=== PATIENT | male | born 1995 | race American Indian/Alaskan Native ===

== ENCOUNTER 2019-10-06 15:07 | Emergency (ER) | payer SELFPAY ==
[2019-10-06 15:24] VITALS: BP 134/91
--- NOTE | 2019-10-06 16:01 | Emergency Department Report ---
ED ENT HPI - General Chief complaint: Dental/Oral Stated complaint: TOOTH PAIN Time Seen by Provider: 10/06/19 15:56 Source: patient Mode of arrival: Ambulatory Limitations: No Limitations - History of Present Illness Initial comments: 24 YO AA MALE WITH SEVERE LEFT MANDIBULAR DENTAL PAIN PAIN RADIATING DOWN INTO HIS L SHOULDER AND TO HIS HEAD EVALUATED DUE TO CONCERN FOR ABSCESS MD complaint: tooth pain -: Gradual, days(s) Severity: severe Quality: stabbing Consistency: constant Improves with: none Worsens with: none Associated Symptoms: toothache. denies: fever, cough, gum swelling, pain with swallowing, sore throat, tinnitus, hearing loss, discharge from ear, rhinorrhea - Related Data Previous Rx's Medication Instructions Recorded Last Taken Type Amoxicillin [Trimox CAP] 500 mg PO BID #20 capsule 10/06/19 Unknown Rx Ibuprofen [Motrin] 800 mg PO Q8HR PRN #30 tablet 10/06/19 Unknown Rx Allergies Allergy/AdvReac Type Severity Reaction Status Date / Time No Known Allergies Allergy Unverified 10/06/19 15:18 ED Dental HPI - General Chief complaint: Dental/Oral Stated complaint: TOOTH PAIN Time Seen by Provider: 10/06/19 15:56 Source: patient Mode of arrival: Ambulatory Limitations: No Limitations - Related Data Previous Rx's Medication Instructions Recorded Last Taken Type Amoxicillin [Trimox CAP] 500 mg PO BID #20 capsule 10/06/19 Unknown Rx Ibuprofen [Motrin] 800 mg PO Q8HR PRN #30 tablet 10/06/19 Unknown Rx Allergies Allergy/AdvReac Type Severity Reaction Status Date / Time No Known Allergies Allergy Unverified 10/06/19 15:18 ED Review of Systems ROS: Stated complaint: TOOTH PAIN Other details as noted in HPI Comment: All other systems reviewed and negative ED Past Medical Hx - Past Medical History Previous Medical History?: No - Surgical History Past Surgical History?: Yes Additional Surgical History: hernia repair - Family History Family history: no significant - Social History Smoking Status: Current Every Day Smoker Substance Use Type: None - Medications Home Medications: Home Medications Medication Instructions Recorded Confirmed Last Taken Type Amoxicillin [Trimox CAP] 500 mg PO BID #20 capsule 10/06/19 Unknown Rx Ibuprofen [Motrin] 800 mg PO Q8HR PRN #30 tablet 10/06/19 Unknown Rx ED Physical Exam - General Limitations: No Limitations General appearance: alert, in no apparent distress - Head Head exam: Present: atraumatic, normocephalic - Eye Eye exam: Present: normal appearance - ENT ENT exam: Present: mucous membranes moist - Expanded ENT Exam Expanded Ear exam: Present: normal external inspection Mouth exam: Present: normal external inspection. Absent: drooling, trismus, muf fled voice, tongue normal, tongue elevation, laceration Teeth exam: Present: dental caries 1 - Other (CARIES) - Neck Neck exam: Present: normal inspection - Respiratory Respiratory exam: Present: normal lung sounds bilaterally. Absent: respiratory distress - Cardiovascular Cardiovascular Exam: Present: regular rate, normal rhythm. Absent: systolic murmur, diastolic murmur, rubs, gallop - GI/Abdominal GI/Abdominal exam: Present: soft, normal bowel sounds - Rectal Rectal exam: Present: deferred - Extremities Exam Extremities exam: Present: normal inspection - Back Exam Back exam: Present: normal inspection - Neurological Exam Neurological exam: Present: alert, oriented X3 - Psychiatric Psychiatric exam: Present: normal affect, normal mood - Skin Skin exam: Present: warm, dry, intact, normal color. Absent: rash ED Course Vital Signs 10/06/19 15:18 Temperature 98.7 F Pulse Rate 76 Respiratory 18 Rate Blood Pressure 134/91 O2 Sat by Pulse 97 Oximetry ED Medical Decision Making - Medical Decision Making NO ABSCESS NO LUDWIGS ABC INTACT DC WITH AMOX AND DMD FOLLOW UP TAKING PO VERBALIZES UNDERSTANDING DC POC Vital Signs 10/06/19 15:18 Temperature 98.7 F Pulse Rate 76 Respiratory 18 Rate Blood Pressure 134/91 O2 Sat by Pulse 97 Oximetry - Differential Diagnosis DENTAL PAIN RO ABSCESS Critical care attestation.: If time is entered above; I have spent that time in minutes in the direct care of this critically ill patient, excluding procedure time. ED Disposition Clinical Impression: Dental caries, Pain, dental Disposition: DC-01 TO HOME OR SELFCARE Is pt being admited?: No Does the pt Need Aspirin: No Condition: Stable Additional Instructions: SEE DMD TRACI SEE REFERRALS Referrals: [facility] [Outside] - 3-5 Days Time of Disposition: 15:58
== END 2019-10-06 16:09 | disposition home or self-care (01) ==
LOC: ED 15:07
DX: K02.9 Dental caries, unspecified (principal); K08.89 Other specified disorders of teeth and supporting structures; F17.200 Nicotine dependence, unspecified, uncomplicated; Z98.890 Other specified postprocedural states; Z79.899 Other long term (current) drug therapy
CPT/HCPCS: 99282

== ENCOUNTER 2021-05-26 00:53 | Emergency (ER) | payer SELFPAY ==
[2021-05-26] MEDS ORDERED: SODIUM CHLORIDE 0.9% 1000 ML 1,000 ML IV ONE (01:13)
[2021-05-26] MEDS ORDERED: NALOXONE 0.4 MG/1 ML INJ IV ONE (01:13)
--- NOTE | 2021-05-26 01:40 | XRay Report ---
CHEST 1 VIEW INDICATION / CLINICAL INFORMATION: Overdose. COMPARISON: None available. FINDINGS: SUPPORT DEVICES: None. HEART / MEDIASTINUM: No significant abnormality. LUNGS / PLEURA: No significant pulmonary or pleural abnormality. No pneumothorax. ADDITIONAL FINDINGS: No significant additional findings. IMPRESSION: 1. No active cardiopulmonary disease. Signer Name: Hans Álvarez II, MD Signed: 05/26/2021 1:36 AM Workstation Name: [email or web address]
[2021-05-26 02:01] LABS: Hematocrit 47.9 % (35.5-45.6); Hemoglobin 15.4 gm/dl (11.8-15.2); Mean Corpuscular HGB Conc 32 % (32-34); Mean Corpuscular Volume 90 fl (84-94); Red Blood Count 5.34 M/mm3 (3.65-5.03); Red Cell Distribution Width 13.4 % (13.2-15.2)
[2021-05-26 02:02] LABS: Basophils # (Auto) 0.1 K/mm3 (0.0-0.1); Basophils % (Auto) 0.5 % (0.0-1.8); Eosinophils % (Auto) 0.3 % (0.0-4.3); Lymphocytes # (Auto) 4.2 K/mm3 (1.2-5.4); Lymphocytes % (Auto) 31.9 % (13.4-35.0); Monocytes % (Auto) 7.9 % (0.0-7.3); Platelet Count 256 K/mm3 (140-440)
[2021-05-26 02:08] LABS: Cannabinoid Screen,Urine PRESUMPTIVE POSITIVE
[2021-05-26 02:12] LABS: Bacteria,Urine 2+ /HPF (Negative); Bilirubin,Urine NEG (Negative); Blood,Urine NEG (Negative); Color,Urine Straw (Yellow); RBC,Urine < 1.0 /HPF (0.0-6.0); Urobilinogen,Urine < 2.0 mg/dL (<2.0)
[2021-05-26 02:12] LABS: Alanine Aminotransferase 19 units/L (7-56); Albumin 4.8 g/dL (3.9-5); BUN/Creatinine Ratio 9; Blood Urea Nitrogen 7 mg/dL (9-20); Calcium 8.8 mg/dL (8.4-10.2); Hemolysis Index 5
[2021-05-26 02:15] LABS: WBC,Urine < 1.0 /HPF (0.0-6.0)
[2021-05-26 02:17] LABS: INR 0.97 (0.87-1.13)
[2021-05-26 02:41] LABS: Amphetamine Screen,Urine PRESUMPTIVE NEGATIVE; Benzodiazepines Screen,Urine PRESUMPTIVE NEGATIVE; Methadone Screen,Urine PRESUMPTIVE NEGATIVE
[2021-05-26 02:42] LABS: Cocaine Screen,Urine PRESUMPTIVE NEGATIVE; Opiate Screen,Urine PRESUMPTIVE NEGATIVE
[2021-05-26 03:40] VITALS: BP 132/81
--- NOTE | 2021-05-26 03:59 | Emergency Department Report ---
ED General Adult HPI - General Chief complaint: Overdose Stated complaint: OVERDOSE Time Seen by Provider: 05/26/21 01:11 Source: EMS Mode of arrival: Stretcher Limitations: Altered Mental Status - History of Present Illness Initial comments: EMS reports mother found pt outside yelling. EMS found pt lethargic with RR of 4. 1.6 NArcan given [employer]PERATOR and pt did respond. Pt is awake, lethargic but able to follow some commands. NAD noted.pt was drinking today -: Gradual, days(s) Associated Symptoms: denies other symptoms Treatments Prior to Arrival: none - Related Data Previous Rx's Medication Instructions Recorded Last Taken Type Amoxicillin [Trimox CAP] 500 mg PO BID #20 capsule 10/06/19 Unknown Rx Ibuprofen [Motrin] 800 mg PO Q8HR PRN #30 tablet 10/06/19 Unknown Rx Allergies Allergy/AdvReac Type Severity Reaction Status Date / Time No Known Allergies Allergy Unverified 10/06/19 15:18 ED Review of Systems ROS: Stated complaint: OVERDOSE Other details as noted in HPI Comment: Unobtainable due to pts medical conditions ED Past Medical Hx - Past Medical History Previous Medical History?: No Hx Hypertension: No - Surgical History Additional Surgical History: hernia repair - Social History Smoking Status: Unknown if ever smoked - Medications Home Medications: Home Medications Medication Instructions Recorded Confirmed Last Taken Type Amoxicillin [Trimox CAP] 500 mg PO BID #20 capsule 10/06/19 Unknown Rx Ibuprofen [Motrin] 800 mg PO Q8HR PRN #30 tablet 10/06/19 Unknown Rx ED Physical Exam - General Limitations: Altered Mental Status General appearance: appears intoxicated - Head Head exam: Present: atraumatic, normocephalic - Eye Eye exam: Present: normal appearance - ENT ENT exam: Present: mucous membranes moist - Neck Neck exam: Present: normal inspection - Respiratory Respiratory exam: Present: normal lung sounds bilaterally. Absent: respiratory distress - Cardiovascular Cardiovascular Exam: Present: regular rate, normal rhythm. Absent: systolic murmur, diastolic murmur, rubs, gallop - GI/Abdominal GI/Abdominal exam: Present: soft, normal bowel sounds - Rectal Rectal exam: Present: deferred - Extremities Exam Extremities exam: Present: normal inspection - Back Exam Back exam: Present: normal inspection - Neurological Exam Neurological exam: Present: alert, oriented X3 - Psychiatric Psychiatric exam: Present: normal affect, normal mood - Skin Skin exam: Present: warm, dry, intact, normal color. Absent: rash ED Course Vital Signs 05/26/21 05/26/21 05/26/21 01:01 01:10 01:41 Temperature 97.4 F L Pulse Rate 105 H 119 H Respiratory 21 19 Rate Blood Pressure Blood Pressure 128/85 [Right] O2 Sat by Pulse 98 98 100 Oximetry 05/26/21 05/26/21 05/26/21 01:46 02:00 02:16 Temperature Pulse Rate 103 H 77 78 Respiratory 14 15 17 Rate Blood Pressure 121/84 107/61 107/61 Blood Pressure [Right] O2 Sat by Pulse 97 98 97 Oximetry 05/26/21 05/26/21 05/26/21 02:30 02:46 03:00 Temperature Pulse Rate 75 96 H 94 H Respiratory 16 10 L 16 Rate Blood Pressure 97/58 97/58 140/88 Blood Pressure [Right] O2 Sat by Pulse 97 100 100 Oximetry 05/26/21 05/26/21 03:16 03:30 Temperature Pulse Rate 81 96 H Respiratory 16 15 Rate Blood Pressure 140/88 132/81 Blood Pressure [Right] O2 Sat by Pulse 99 100 Oximetry - Reevaluation(s) Reevaluation #1: 05/26/21 03:59 spoke with mother on the phone , no SI or recent depression , has a heavy drinker and has been drinking lately , no suspeiction of mental disorder or recent depression or suicidal ideation 05/26/21 05:05 pt is vss , no distress will be released to his mother custody ED Medical Decision Making - Lab Data Result diagrams: 05/26/21 01:22 05/26/21 01:22 Critical care attestation.: If time is entered above; I have spent that time in minutes in the direct care of this critically ill patient, excluding procedure time. ED Disposition Clinical Impression: Alcohol abuse Disposition: 01 HOME / SELF CARE / HOMELESS Is pt being admited?: No Does the pt Need Aspirin: No Condition: Stable
== END 2021-05-26 06:54 | disposition home or self-care (01) ==
LOC: ED 00:53
DX: F10.10 Alcohol abuse, uncomplicated (principal); Y90.9 Presence of alcohol in blood, level not specified; Z79.899 Other long term (current) drug therapy; R79.1 Abnormal coagulation profile
CPT/HCPCS: 36415; 71045; 80053; 80307; 81001; 83930; 85025; 85610; 99284; J7030; 80320; Q0162; G0480